=== PATIENT | female | born 2000 | race Caucasian/White ===

== ENCOUNTER 2024-12-30 10:08 | Day surgery (SDC) | payer OTHER ==
[2024-12-30 10:52] VITALS: BMI 43.0
[2024-12-30] MEDS ORDERED: hydrALAZINE 20 MG/ML VIAL SLOW IVP PRN (11:34)
== END 2024-12-30 13:30 | disposition home or self-care (01) ==
LOC: CSHERS 10:08 → CSHLD/OP 10:14
PROVIDERS: ATTEND Obstetrics & Gynecology
DX: O99.891 Other specified diseases and conditions complicating pregnancy (principal); R05.3 Chronic cough; R09.81 Nasal congestion; O99.513 Diseases of the respiratory system complicating pregnancy, third trimester; J02.9 Acute pharyngitis, unspecified; O36.63X0 Maternal care for excessive fetal growth, third trimester, not applicable or unspecified; O36.8130 Decreased fetal movements, third trimester, not applicable or unspecified; Z3A.35 35 weeks gestation of pregnancy; Z79.899 Other long term (current) drug therapy
CPT/HCPCS: 76819; 87081; 87428; 87430; 99283

== ENCOUNTER 2025-01-12 17:50 | Inpatient (IN) | payer OTHER ==
[2025-01-12 18:42] VITALS: BMI 42.5
[2025-01-12] MEDS ORDERED: Lidocaine 1% (PF) 30 ML VIAL SC PRN (18:45)
[2025-01-12] MEDS ORDERED: Tranexamic Acid 1,000 MG/10 ML VIAL IVP PRN (18:45)
[2025-01-12] MEDS ORDERED: Oxytocin 30 units/NS 500 ML 500 ML IV SCH (18:45)
[2025-01-12] MEDS ORDERED: Carboprost 250 MCG/ML AMP IM PRN (18:45)
[2025-01-12] MEDS ORDERED: Famotidine/PF 20 mg/2ml Vial SLOW IVP PRN (18:45)
[2025-01-12] MEDS ORDERED: Diphenoxylate HCl/Atropine Tablet PO PRN ×2 (18:45)
[2025-01-12] MEDS ORDERED: Ibuprofen 800 MG TAB PO PRN (18:45)
[2025-01-12] MEDS ORDERED: HYDROcodone/Acetaminophen 5/325 mg Tablet PO PRN ×2 (18:45)
[2025-01-12] MEDS ORDERED: Ondansetron PF 4 MG/2 ML Vial IVP PRN ×3 (18:45→21:49)
[2025-01-12] MEDS ORDERED: Calcium Gluc 4.6 MEQ/10 ML (100 MG/ML) SLOW IVP PRN (18:49)
[2025-01-12] MEDS ORDERED: Magnesium Sulfate 20 gm/500 ml 20 GM/500 ML BAG IVPB SCH (19:00)
[2025-01-12] MEDS: hydrALAZINE 20 MG/ML VIAL SLOW IVP PRN (19:14)
[2025-01-12 19:48] LABS: Hematocrit 38.1 % (34.9-44.5); Hemoglobin 13.2 g/dL (12.0-15.5); Mean Corpuscular Hemoglobin 30.7 pg (27.0-33.0); Mean Corpuscular Volume 88.6 fL (81.6-98.3); Platelet Count 340 10x3/uL (150-450); Red Blood Cell (RBC) Count 4.30 10x6/uL (3.90-5.03); White Blood Cell (WBC) Count 15.16 10x3/uL (3.5-10.5)
[2025-01-12 19:59] LABS: ALT (SGPT) 9 U/L (Less than 34); AST (SGOT) 13 U/L (11-34); Albumin 2.8 g/dL (3.1-4.5); Alkaline Phosphatase 98 U/L (40-110); Anion Gap 16 mmol/L (10-20); BUN (Urea Nitrogen) 9 mg/dL (7.0-18.7); Bilirubin, Total 0.2 mg/dL (0.3-1.2); Calc. Creatinine Clearance 286 mL/min (70-130); Calcium 9.4 mg/dL (7.8-10.44); Carbon Dioxide 18 mmol/L (22-29); Chloride 109 mmol/L (98-107); Globulin 3.6 g/dL (2.4-3.5); Glucose 104 mg/dL (70-105); Potassium 4.0 mmol/L (3.5-5.1); Sodium 139 mmol/L (136-145)
[2025-01-12] MEDS: Bicitra 30 ML UDCUP PO PRN (20:27)
[2025-01-12] MEDS: Magnesium Sulfate 20 gm/500 ml 20 GM/500 ML BAG IVPB SCH (20:27)
[2025-01-12 21:11] LABS: Hep B Surf Ag - L&D Non-Reactive S/CO (NonReactive)
[2025-01-12 21:14] LABS: Syphilis Antibody Index 0.04 S/CO (<1.00 Non-Reactive)
[2025-01-12] MEDS ORDERED: diphenhydrAMINE 25 MG CAP PO PRN (21:43)
[2025-01-12] MEDS ORDERED: hydrALAZINE 20 MG/ML VIAL SLOW IVP PRN (21:43)
[2025-01-12] MEDS ORDERED: Meperidine HCl/PF 25 MG (1 mL) VIAL SLOW IVP PRN (21:49)
[2025-01-12] MEDS ORDERED: diphenhydrAMINE 50 MG/ML VIAL IVP PRN (21:49)
[2025-01-12] MEDS ORDERED: Communication Order-Pharmacy FS SCH (22:00)
[2025-01-12] MEDS: Ketorolac Tromethamine 30 MG (1 mL) VIAL IVP SCH (23:00)
[2025-01-13 04:22] LABS: Hematocrit 33.7 % (34.9-44.5); Hemoglobin 11.3 g/dL (12.0-15.5); Mean Corpuscular Hemoglobin 30.3 pg (27.0-33.0); Mean Corpuscular Volume 90.3 fL (81.6-98.3); Platelet Count 248 10x3/uL (150-450); Red Blood Cell (RBC) Count 3.73 10x6/uL (3.90-5.03); White Blood Cell (WBC) Count 15.50 10x3/uL (3.5-10.5)
[2025-01-13] MEDS: NIFEdipine XL 30 MG ER.TAB PO SCH (08:25)
[2025-01-13] MEDS: Ketorolac Tromethamine 30 MG (1 mL) VIAL IVP PRN (08:25)
[2025-01-13] MEDS ORDERED: HYDROcodone/Acetaminophen 5/325 mg Tablet PO PRN (10:00)
[2025-01-13] MEDS: PHENYLEPHRINE-NS 100 MCG/ML 10 ML SYRINGE ONE ×2 (15:01)
[2025-01-13] MEDS: Oxytocin 10 UNITS/ML VIAL ONE ×2 (15:01)
[2025-01-13] MEDS: Ondansetron PF 4 MG/2 ML Vial ONE (15:01)
[2025-01-13] MEDS: Lidocaine 1% PF 5 ML VIAL ONE (15:01)
[2025-01-13] MEDS: Acetaminophen 500 MG TAB PO PRN (18:46)
[2025-01-13 20:21] LABS: #Basophils 0.04 10x3/uL (0.0-0.2); #Eosinophils 0.03 10x3/uL (0.0-0.5); #Monocytes 0.48 10x3/uL (0.0-1.1); #Neutrophils 12.76 10x3/uL (1.5-8.4); %Basophils 0.3 % (0.0-2.0); %Eosinophils 0.2 % (0.0-6.0); %Lymphocytes 6.7 % (18.0-47.0); %Monocytes 3.3 % (0.0-10.0); %Neutrophils 88.9 % (40.0-75.0); Hematocrit 36.7 % (34.9-44.5); Hemoglobin 12.1 g/dL (12.0-15.5); Mean Corpuscular Hemoglobin 30.3 pg (27.0-33.0); Mean Corpuscular Volume 91.8 fL (81.6-98.3); Platelet Count 221 10x3/uL (150-450); Red Blood Cell (RBC) Count 4.00 10x6/uL (3.90-5.03); White Blood Cell (WBC) Count 14.35 10x3/uL (3.5-10.5)
[2025-01-13 20:38] LABS: ALT (SGPT) 7 U/L (Less than 34); AST (SGOT) 18 U/L (11-34); Albumin 2.5 g/dL (3.1-4.5); Alkaline Phosphatase 87 U/L (40-110); Anion Gap 14 mmol/L (10-20); BUN (Urea Nitrogen) 6 mg/dL (7.0-18.7); Bilirubin, Total 0.3 mg/dL (0.3-1.2); Calc. Creatinine Clearance 302 mL/min (70-130); Calcium 8.0 mg/dL (7.8-10.44); Carbon Dioxide 18 mmol/L (22-29); Chloride 108 mmol/L (98-107); Globulin 3.7 g/dL (2.4-3.5); Glucose 115 mg/dL (70-105); Magnesium 4.6 mg/dL (1.6-2.6); Potassium 4.1 mmol/L (3.5-5.1); Sodium 136 mmol/L (136-145)
[2025-01-14] MEDS: HYDROcodone/Acetaminophen 5/325 mg Tablet PO PRN ×2 (02:17→08:36)
[2025-01-14] MEDS: Ibuprofen 800 MG TAB PO SCH ×2 (02:28→11:07)
[2025-01-14] MEDS: hydrALAZINE 20 MG/ML VIAL ONE (07:42)
[2025-01-14] MEDS: NIFEdipine XL 30 MG ER.TAB PO SCH (07:42)
[2025-01-14] MEDS: Simethicone Chewable 80 MG TAB PO PRN (08:35)
[2025-01-14] MEDS: NIFEdipine XL 60 MG ER.TAB PO SCH (08:36)
[2025-01-14] MEDS: Boostrix 0.5 ML (Tdap) VIAL (>/=7 yrs of age) IM ONE (10:33)
[2025-01-15] MEDS: Ibuprofen 800 MG TAB PO SCH (02:57)
[2025-01-15] MEDS: HYDROcodone/Acetaminophen 5/325 mg Tablet PO PRN (08:51)
[2025-01-15 08:53] VITALS: BP 136/84
[2025-01-15 09:01] VITALS: TEMP 98
== END 2025-01-15 15:50 | disposition home or self-care (01) | DRG 788 ==
LOC: CSHLD 17:50 → CSHPP 01-13 22:40 → MERGE 01-31 12:55
PROVIDERS: ADMIT Obstetrics & Gynecology; ATTEND Obstetrics & Gynecology
PROC: 10D00Z1 Extraction of Products of Conception, Low, Open Approach (ICD-10-PCS; principal; 2025-01-12)
DX: O14.14 Severe pre-eclampsia complicating childbirth (principal); O99.214 Obesity complicating childbirth; O32.1XX0 Maternal care for breech presentation, not applicable or unspecified; Z37.0 Single live birth; Z3A.37 37 weeks gestation of pregnancy; Z79.899 Other long term (current) drug therapy
CPT/HCPCS: 36415; 51702; 80053; 83735; 85027; 86780; 86850; 86900; 86901; 87340; J0360; J1885; J2274; J2590; J3475